=== PATIENT | male | born 2000 | race African-American/Black ===

== ENCOUNTER 2023-05-24 19:44 | Inpatient (IN) | payer SELFPAY ==
[2023-05-24] MEDS ORDERED: Propofol 1,000 MG/100 ML VIAL IV ONE (19:48)
[2023-05-24 20:00] LABS: Hematocrit 36.6 % (42.0-52.0); Hemoglobin 12.5 g/dL (14.0-18.0); Manual Diff?? YES; Mean Corpuscular HGB CONC 34.2 g/dL (32.0-36.0); Mean Corpuscular Hemoglobin 30.3 pg (27.0-31.0); Mean Corpuscular Volume 88.6 fl (78.0-98.0); Mean Platelet Volume 9.4 fL (7.4-10.4); Platelet Count 192 10x3/uL (130-400); RBC Distribution Width 12.9 % (11.5-14.5); Red Blood Cell (RBC) Count 4.13 mill/uL (4.70-6.10); White Blood Cell (WBC) Count 5.9 10x3/uL (4.8-10.8)
[2023-05-24 20:08] LABS: Actual Bicarbonate (HCO3a) 23.3 mEq/L (22-28); Analyzer IN Cardio ER; Base Excess (BEa) -0.2 mEq/L (-2.0 to +3.0); CO2 Tension 34.6 mmHg (35.0-45.0); Calcium, Ionized (arterial) 1.09 mmol/L (1.12-1.30); Carboxyhemoglobin (COHb) 0.3 gm% (0.0-3.0); Hematocrit-ABG 38 % (42.0-52.0); O2 Tension (PaO2), arterial 603.1 mmHg (80.0-100.0); Potassium - ABG Lab 3.33 mmol/L (3.70-5.30); pH, Arterial 7.447 (7.35-7.45)
[2023-05-24 20:14] LABS: Delete Auto Diff?? YES
[2023-05-24 20:15] LABS: Puncture Site RR
[2023-05-24 20:18] LABS: ALT (SGPT) 25 U/L (8-55); AST (SGOT) 23 U/L (5-34); Albumin 4.2 g/dL (3.5-5.0); Alkaline Phosphatase 53 U/L (40-110); Anion Gap 12 mmol/L (10-20); BUN (Urea Nitrogen) 11 mg/dL (8.9-20.6); Bilirubin, Total 0.2 mg/dL (0.2-1.2); Calc. Creatinine Clearance 0 mL/min (70-130); Calcium 8.2 mg/dL (7.8-10.44); Carbon Dioxide 25 mmol/L (22-29); Chloride 104 mmol/L (98-107); Estimated GFR 105; Globulin 2.2 g/dL (2.4-3.5); Glucose 181 mg/dL (70-105); Potassium 3.2 mmol/L (3.5-5.1); Protein, Total 6.4 g/dL (6.0-8.3); Sodium 138 mmol/L (136-145)
[2023-05-24 20:21] LABS: Troponin I Less than 0.010 ng/mL (< 0.028)
[2023-05-24 20:33] LABS: Amphetamine Not Detected (NotDetected); Barbiturates Screen Not Detected (NotDetected); Benzodiazepine Screen Not Detected (NotDetected); Cocaine Metabolite Screen Not Detected (NotDetected); Methadone Not Detected (NotDetected); Methamphetamine Not Detected (NotDetected); Opiate Screen Not Detected (NotDetected); Oxycodone Screen Not Detected (NotDetected); Phencyclidine (PCP) Not Detected (NotDetected); THC/Cannabinoid Screen Detected (NotDetected); Tricyclic Screen Not Detected (NotDetected)
[2023-05-24 20:44] LABS: Acetaminophen Less than 10 mcg/mL (10.0-30.0); Alcohol Less than 10.0 mg/dL (Less than 10); Salicylate Less than 8.0 mg/dL (15.0-30.0)
[2023-05-24] MEDS ORDERED: Potassium Chloride 20 MEQ/100 ML PREMIX BAG ONE (20:52)
[2023-05-24 20:54] LABS: Anisocytosis SLIGHT = 6-15 cells HPF (0-5); CellaVision Operator ID LAB.JMM; Eosinophils 1 % (0-10); Lymphocytes 58 % (21-51); Macrocytosis SLIGHT = 6-15 cells HPF (0-5); Monocytes 9 % (0-10); Neutrophil 31 % (42-75); Platelet Adequacy Comment Platelets Normal; Total Cell Count 100
[2023-05-24] MEDS ORDERED: fentaNYL 50 mcg/mL 1 mL Vial ONE (21:06)
[2023-05-24 21:25] LABS: Magnesium 1.8 mg/dL (1.6-2.6)
[2023-05-24] MEDS ORDERED: Electrolyte Replacement Protocol 1 EACH IVPB PRN (21:50)
[2023-05-24] MEDS ORDERED: Ondansetron ODT 4 MG TAB PO PRN (21:53)
[2023-05-24] MEDS ORDERED: Ventilator Sedation Protocol 1 EACH FS SCH (22:00)
[2023-05-24] MEDS ORDERED: Dextrose 5%-Lactated Ringers 1,000 ML IV SCH (22:00)
[2023-05-24] MEDS ORDERED: Propofol BOLUS 1,000 MG/100 ML VIAL IV PRN (22:00)
[2023-05-24] MEDS ORDERED: Fentanyl BOLUS 250 ML IVPB PRN (22:00)
[2023-05-24] MEDS ORDERED: Fentanyl CADD 100 ML IV SCH (22:00)
[2023-05-24] MEDS ORDERED: Morphine 2 MG/ML VIAL SLOW IVP PRN (22:00)
[2023-05-24] MEDS ORDERED: DISCONTINUE PREVIOUS NARCOTIC PAIN MEDICATIONS AND BENZODIAZEPINES FS SCH (22:00)
[2023-05-24] MEDS ORDERED: Lorazepam 2 MG/ML VIAL SLOW IVP PRN (22:00)
[2023-05-24] MEDS ORDERED: levETIRAcetam 500 MG/5 ML VIAL SLOW IVP SCH (23:00)
[2023-05-24 23:50] VITALS: BMI 19.3
[2023-05-24] MEDS ORDERED: Potassium Chloride 20 MEQ in Premix 1 BAG IVPB SCH (23:59)
[2023-05-25] MEDS: Lactated Ringer's 1,000 ML IV SCH ×2 (00:38→06:18)
[2023-05-25] MEDS: Propofol 1,000 MG/100 ML VIAL IV PRN ×2 (00:41→06:08)
[2023-05-25 00:42] LABS: Lactic Acid 2.2 mmol/L (0.5-2.2)
[2023-05-25] MEDS ORDERED: Lactated Ringer's 500 ML IV SCH (00:45)
[2023-05-25] MEDS ORDERED: Magnesium 2 GM/50 ML(in water) 2 GM in Premix 1 BAG IVPB SCH (02:00)
[2023-05-25 05:45] LABS: #Eosinphils 0.1 thou/uL (0.0-0.7); #Monocytes 0.7 thou/uL (0.11-0.59); #Neutrophils 4.6 thou/uL (1.40-6.50); %Basophils 0.3 % (0.0-1.0); %Eosinophils 1.6 % (0.0-10.0); %Lymphocytes 38.7 % (21.0-51.0); %Monocytes 7.4 % (0.0-10.0); %Neutrophils 51.8 % (42.0-75.0); Hematocrit 33.8 % (42.0-52.0); Hemoglobin 11.9 g/dL (14.0-18.0); Mean Corpuscular HGB CONC 35.2 g/dL (32.0-36.0); Mean Corpuscular Hemoglobin 30.3 pg (27.0-31.0); Mean Platelet Volume 9.7 fL (7.4-10.4); Platelet Count 193 10x3/uL (130-400); RBC Distribution Width 12.7 % (11.5-14.5); Red Blood Cell (RBC) Count 3.93 mill/uL (4.70-6.10); White Blood Cell (WBC) Count 8.9 10x3/uL (4.8-10.8)
[2023-05-25 06:23] LABS: Anion Gap 14 mmol/L (10-20); BUN (Urea Nitrogen) 8 mg/dL (8.9-20.6); Calc. Creatinine Clearance 118 mL/min (70-130); Calcium 8.6 mg/dL (7.8-10.44); Carbon Dioxide 20 mmol/L (22-29); Chloride 111 mmol/L (98-107); Estimated GFR 126; Glucose 79 mg/dL (70-105); Potassium 3.6 mmol/L (3.5-5.1); Sodium 141 mmol/L (136-145)
[2023-05-25] MEDS: levETIRAcetam 500 MG/5 ML VIAL SLOW IVP SCH ×2 (08:01→20:56)
[2023-05-25] MEDS ORDERED: Famotidine/PF 20 mg/2ml Vial SLOW IVP SCH (09:00)
[2023-05-25] MEDS: Acetaminophen 325 MG TAB PO PRN ×3 (14:30→22:44)
[2023-05-26] MEDS: Acetaminophen 325 MG TAB PO PRN ×4 (05:38→20:47)
[2023-05-26 05:42] LABS: #Basophils 0.1 thou/uL (0.0-0.2); #Eosinphils 0.2 thou/uL (0.0-0.7); #Monocytes 0.9 thou/uL (0.11-0.59); %Basophils 0.5 % (0.0-1.0); %Eosinophils 2.1 % (0.0-10.0); %Lymphocytes 29.7 % (21.0-51.0); %Monocytes 8.7 % (0.0-10.0); %Neutrophils 58.8 % (42.0-75.0); Hematocrit 40.3 % (42.0-52.0); Hemoglobin 13.3 g/dL (14.0-18.0); Mean Corpuscular Hemoglobin 29.2 pg (27.0-31.0); Mean Corpuscular Volume 88.4 fl (78.0-98.0); Mean Platelet Volume 9.7 fL (7.4-10.4); Platelet Count 186 10x3/uL (130-400); RBC Distribution Width 13.2 % (11.5-14.5); Red Blood Cell (RBC) Count 4.56 mill/uL (4.70-6.10); White Blood Cell (WBC) Count 10.2 10x3/uL (4.8-10.8)
[2023-05-26 06:14] LABS: Anion Gap 13 mmol/L (10-20); BUN (Urea Nitrogen) 5 mg/dL (8.9-20.6); Calc. Creatinine Clearance 108 mL/min (70-130); Calcium 9.2 mg/dL (7.8-10.44); Carbon Dioxide 24 mmol/L (22-29); Chloride 106 mmol/L (98-107); Estimated GFR 120; Glucose 81 mg/dL (70-105); Potassium 3.8 mmol/L (3.5-5.1); Sodium 139 mmol/L (136-145)
[2023-05-26] MEDS: levETIRAcetam 500 MG/5 ML VIAL SLOW IVP SCH ×2 (08:13→20:47)
[2023-05-26] MEDS ORDERED: Phenol 177 ML BOT PO PRN (14:50)
[2023-05-27] MEDS: Acetaminophen 325 MG TAB PO PRN (04:11)
[2023-05-27 05:09] LABS: #Basophils 0.1 thou/uL (0.0-0.2); #Eosinphils 0.3 thou/uL (0.0-0.7); #Monocytes 0.7 thou/uL (0.11-0.59); #Neutrophils 4.2 thou/uL (1.40-6.50); %Basophils 0.6 % (0.0-1.0); %Eosinophils 3.3 % (0.0-10.0); %Lymphocytes 34.9 % (21.0-51.0); %Monocytes 8.9 % (0.0-10.0); Hematocrit 40.5 % (42.0-52.0); Hemoglobin 13.6 g/dL (14.0-18.0); Mean Corpuscular HGB CONC 33.6 g/dL (32.0-36.0); Mean Corpuscular Hemoglobin 29.4 pg (27.0-31.0); Mean Corpuscular Volume 87.7 fl (78.0-98.0); Mean Platelet Volume 10.3 fL (7.4-10.4); Platelet Count 185 10x3/uL (130-400); RBC Distribution Width 12.8 % (11.5-14.5); Red Blood Cell (RBC) Count 4.62 mill/uL (4.70-6.10)
[2023-05-27 05:36] LABS: Anion Gap 13 mmol/L (10-20); BUN (Urea Nitrogen) 9 mg/dL (8.9-20.6); Calc. Creatinine Clearance 98 mL/min (70-130); Calcium 9.1 mg/dL (7.8-10.44); Carbon Dioxide 26 mmol/L (22-29); Chloride 102 mmol/L (98-107); Estimated GFR 103; Glucose 80 mg/dL (70-105); Potassium 3.4 mmol/L (3.5-5.1); Sodium 138 mmol/L (136-145)
[2023-05-27] MEDS ORDERED: Potassium Chloride 20 MEQ TAB PO SCH (08:00)
[2023-05-27] MEDS: levETIRAcetam 500 MG/5 ML VIAL SLOW IVP SCH (08:52)
[2023-05-27 16:05] VITALS: BP 135/83; TEMP 98.1
== END 2023-05-27 16:36 | disposition home or self-care (01) | DRG 208 ==
LOC: ERS 19:44 → EDBD 19:44 → CCU 21:54 → 2SW 05-26 21:48
PROVIDERS: ADMIT Student in an Organized Health Care Education/Training Program; ATTEND Hospitalist
PROC: 4A133R1 Monitoring of Arterial Saturation, Peripheral, Percutaneous Approach (ICD-10-PCS; principal; 2023-05-24)
PROC: 5A1935Z Respiratory Ventilation, Less than 24 Consecutive Hours (ICD-10-PCS; 2023-05-24)
DX: J96.00 Acute respiratory failure, unspecified whether with hypoxia or hypercapnia (principal); G93.41 Metabolic encephalopathy; A05.9 Bacterial foodborne intoxication, unspecified; E87.6 Hypokalemia; D64.9 Anemia, unspecified; I45.81 Long QT syndrome; R56.9 Unspecified convulsions; E03.9 Hypothyroidism, unspecified; R55 Syncope and collapse; Z78.1 Physical restraint status
CPT/HCPCS: 36415; 36416; 70450; 70551; 71045; 72125; 80048; 80053; 80306; 80307; 82805; 83605; 83735; 84146; 84439; 84443; 84484; 85025; 93005; 93010; 93306; 94003; 95711; 95819; 95957; J1953; J2704; J3010; J3475; J3480; J7120; Q0162; S0028